=== PATIENT | male | born 1960 | race African-American/Black ===

== ENCOUNTER 2016-12-15 13:22 | Emergency (ER) | payer MEDICARE, MEDICAID ==
[~2016-12-15] VITALS: Ht 167.6 cm; Wt 65.0 kg
[2016-12-15 13:54] LABS: HEMATOCRIT 40.6 % (39.0-50.0); HEMOGLOBIN 14.3 g/dl (14.0-18.0); IMMATURE GRANULOCYTES 0.3 % (0.0-1.0); MEAN CELL VOLUME 82.5 fL CALC (80.0-100.0); MEAN CORPUSCULAR HGB 29.1 pG CALC (26.0-32.0); MEAN CORPUSCULAR HGB CONC 35.2 g/L CALC (32.0-36.0); NEUT# 5.91 thou/uL (1.82-7.42); RED BLOOD COUNT 4.92 mill/uL (4.70-6.10); RED CELL DISTRI WIDTH 15.9 % (11.5-15.5)
[2016-12-15] MEDS ORDERED: AMLODIPINE5 MG PO (13:58)
[2016-12-15] MEDS ORDERED: LISINOP/HCTZ1 TA2 PO (13:58)
[2016-12-15] MEDS ORDERED: LIPITOR20 MG PO (13:59)
[2016-12-15] MEDS ORDERED: HYDROCHLOROT12.5 M1 PO (13:59)
[2016-12-15 14:09] LABS: PROTHROMBIN TIME 10.6 SECONDS (9.0-12.5)
[2016-12-15 14:18] VITALS: BP 154/96
[2016-12-15 14:32] LABS: ALBUMIN 4.8 g/dL (3.2-5.0); ALKALINE PHOSPHATASE 58 u/l (38-126); AMYLASE 86 u/l (30-110); ANION GAP 18 (6-22 (CALC)); BILIRUBIN, TOTAL 1.7 mg/dL (0.0-1.4); BUN 21 mg/dL (9-20); BUN/CREATININE RATIO 17 (12-20 (CALC)); CALCIUM 9.6 mg/dL (8.4-10.2); CARBON DIOXIDE 25 mmol/l (22-30); CHLORIDE 104 mmol/l (95-108); CREATININE 1.3 mg/dL (0.7-1.3); GFR 57 ML/MIN (>=60 (CALC)); GFR FOR AFR.AMER. > 60 ML/MIN (>=60 (CALC)); GLUCOSE 137 mg/dL (75-110); LIPASE 48 u/l (23-300); POTASSIUM 3.6 mmol/l (3.5-5.1); SGOT/AST 27 u/l (17-59); SGPT/ALT 34 u/l (21-72); SODIUM 142 mmol/l (137-146); TOTAL PROTEIN 8.5 g/dL (6.3-8.2)
[2016-12-15 14:44] LABS: MYOGLOBIN 85 ng/mL (0 - 121)
== END 2016-12-15 14:50 | disposition short-term general hospital (02) ==
LOC: ED 13:22
PROVIDERS: Emergency Medicine
DX: R94.39 Abnormal result of other cardiovascular function study (principal); I20.9 Angina pectoris, unspecified; R94.31 Abnormal electrocardiogram [ECG] [EKG]; I10 Essential (primary) hypertension; E78.5 Hyperlipidemia, unspecified; R06.02 Shortness of breath; R00.0 Tachycardia, unspecified; Z87.891 Personal history of nicotine dependence; Z72.89 Other problems related to lifestyle
CPT/HCPCS: A9502; J1650; J2785